=== PATIENT | male | born 1945 | race Caucasian/White ===

== ENCOUNTER 2024-01-22 11:01 | Outpatient (RCR) | payer MEDICARE, SELFPAY ==
--- NOTE | 2024-02-02 09:57 | ONC.NURNOTE ---
Dx: Esophageal cancer
== END 2024-07-20 23:59 | disposition home or self-care (01) ==
LOC: CCIC 11:01
PROVIDERS: PCP Family Medicine; Visit Provider Internal Medicine
DX: C15.5 Malignant neoplasm of lower third of esophagus (principal)
CPT/HCPCS: 99211